=== PATIENT | female | born 1935 | race Caucasian/White ===

== ENCOUNTER 2020-07-03 06:05 | Day surgery (SDC) | payer MEDICARE, OTHER ==
[2020-07-02 14:21] LABS: BASOPHILS # (AUTO) 0.1 X10'3 (0-0.2); BASOPHILS % (AUTO) 0.8 % (0-1); EOSINOPHILS # (AUTO) 0.2 X10'3 (0-0.9); EOSINOPHILS % (AUTO) 3.4 % (0-6); HEMATOCRIT 38.9 % (35.0-45.0); HEMOGLOBIN 12.8 g/dl (12.0-16.0); LYMPHOCYTES % (AUTO) 31.1 % (21-51); MEAN CORPUSCULAR HEMOGLOBIN 29.1 PG (27.0-31.0); MEAN CORPUSCULAR VOLUME 88.4 FL (78-98); MEAN PLATELET VOLUME 8.9 FL (7.4-10.4); MONOCYTES # (AUTO) 0.4 X10'3 (0-0.9); MONOCYTES % (AUTO) 6.6 % (2-12); NEUTROPHILS # (AUTO) 3.8 X10'3 (1.8-7.7); NEUTROPHILS % (AUTO) 58.1 % (42-75); PLATELET COUNT 267 X10'3 (140-440); WHITE BLOOD COUNT 6.5 X10'3 (4.5-11.0)
[2020-07-02 14:27] LABS: ALBUMIN 3.6 G/DL (3.4-5.0); ANION GAP 10 (8-16); BLOOD UREA NITROGEN 18 MG/DL (7-18); BUN/CREATININE RATIO 19.8 (6.6-38.0); CALCIUM 8.9 MG/DL (8.5-10.1); CHLORIDE 108 MMOL/L (99-107); CREATININE 0.91 MG/DL (0.40-0.90); GLUCOSE 155 MG/DL (70-104); SODIUM 143 MMOL/L (135-145); TOTAL CARBON DIOXIDE 24.8 MMOL/L (24-32); eGFR 59 ML/MIN
[2020-07-02 14:30] LABS: PARTIAL THROMBOPLASTIN TIME 27 SECONDS (22-32)
[2020-07-03] VITALS (20 sets, daily range): BP systolic 125–240; BP diastolic 61–126
[~2020-07-03] VITALS: Ht 172.7 cm; Wt 100.0 kg
[~2020-07-03 06:05] MED LIST: ASPI-1265 PO; LABE200T28 PO; METF-436 PO; ROSU5TAB4 PO; SAXA5TAB PO; VALS1TAB81 PO
[2020-07-03] MEDS ORDERED: normal saline 1,000 ML IV SCH (06:20)
[2020-07-03] MEDS ORDERED: LORazepam 0.5 MG tablet PO PRN (06:20)
[2020-07-03] MEDS ORDERED: diphenhydrAMINE 25mg capsule PO PRN (06:20)
[2020-07-03] MEDS ORDERED: LIDOcaine/PRILOcaine 5gm cream TP ONE (06:20)
[2020-07-03] MEDS ORDERED: LOSA100T57 PO (06:25)
[2020-07-03] MEDS ORDERED: fentaNYL/PF 50MCG/1 ML 2ML syringe ONE (07:42)
[2020-07-03] MEDS ORDERED: verapamil 2.5 mg/ml inj IV ONE (07:42)
[2020-07-03] MEDS ORDERED: midazolam 2 mg/2 ml injection ONE (07:42)
[2020-07-03] MEDS ORDERED: iohexol 350MG/ML 100ml bottle IV ONE (07:43)
[2020-07-03] MEDS ORDERED: heparin 1,000unit/ml 10ml vial 10 ML ONE ×2 (07:43→09:40)
[2020-07-03] MEDS ORDERED: LIDOcaine 1% (10mg/ml)w/preservative injection 20ml MDV ONE ×3 (07:43→12:14)
[2020-07-03] MEDS ORDERED: iohexol 350 MG/ML 50ML vial IV ONE ×3 (07:43→09:15)
[2020-07-03] MEDS ORDERED: nitroGLYCERIN-Tridil 50MG/D5W 250 ML IV ONE (07:43)
[2020-07-03] MEDS ORDERED: heparin 1,000 UNITS/NS 500ml 500 ML ONE (07:43)
[2020-07-03] MEDS ORDERED: heparin 25,000 UNIT/250ml bag 250 ML IV ONE (09:03)
[2020-07-03 09:06] LABS: ISTAT HGB ART 11.2 g/dl (12.0-16.0); ISTAT Hct ART 33 %PCV (35-48); ISTAT O2 SATURATION ARTERIAL 95 % (95-98); ISTAT SOURCE ART
[2020-07-03] MEDS ORDERED: clopidogrel 300mg tablet ONE (09:40)
[2020-07-03] MEDS ORDERED: CLOPIDOGREL BISULFATE 300MG TAB PO ONE (10:55)
[2020-07-03] MEDS ORDERED: aspirin 81mg tab.chew PO ONE (10:55)
[2020-07-03] MEDS ORDERED: cyclobenzaprine 10mg tablet PO PRN (11:00)
[2020-07-03] MEDS ORDERED: acetaminophen 325mg tablet PO PRN ×2 (11:00)
[2020-07-03] MEDS ORDERED: proCHLORperazine 10 MG/2 ml inj IV PRN (11:00)
[2020-07-03] MEDS ORDERED: heparin 10,000 units/1 ML INJ IV PRN (11:00)
[2020-07-03] MEDS ORDERED: heparin 10,000 units/1 ML INJ IV ONE (11:00)
[2020-07-03] MEDS ORDERED: heparin 25,000 UNIT/250ml bag 250 ML IV SCH (11:00)
[2020-07-03] MEDS ORDERED: HYDROcodone/acetaminophen 10/325mg tab PO PRN ×2 (11:00)
[2020-07-03] MEDS ORDERED: magnesium hydroxide 30ml (MOM) UD suspension PO PRN (11:00)
[2020-07-03] MEDS ORDERED: OXAZEpam 15mg capsule PO PRN (11:00)
--- NOTE | 2020-07-03 12:00 | NUR ---
[employer], laboratory technology teacher called and will come to [facility] patient shortly.
--- NOTE | 2020-07-03 12:30 | NUR ---
Mark CONROY, cath lab nurse at bedside to [facility] to (R) groin.
[2020-07-03] MEDS ORDERED: docusate sod 100mg capsule PO SCH (20:00)
[2020-07-04] MEDS ORDERED: aspirin 81mg tab.chew PO SCH (08:00)
[2020-07-04] MEDS ORDERED: clopidogrel 75mg tablet PO SCH (08:00)
== END 2020-07-03 19:00 | disposition home or self-care (01) ==
LOC: SSTAY O 06:05
PROVIDERS: ATTEND Internal Medicine Cardiovascular Disease
DX: R06.02 Shortness of breath (principal); R53.83 Other fatigue; I25.10 Atherosclerotic heart disease of native coronary artery without angina pectoris; I25.82 Chronic total occlusion of coronary artery; E11.9 Type 2 diabetes mellitus without complications; I10 Essential (primary) hypertension; E78.5 Hyperlipidemia, unspecified; I65.23 Occlusion and stenosis of bilateral carotid arteries; I35.0 Nonrheumatic aortic (valve) stenosis; I25.2 Old myocardial infarction; E66.3 Overweight; Z68.33 Body mass index [BMI] 33.0-33.9, adult; Z98.890 Other specified postprocedural states; Z95.1 Presence of aortocoronary bypass graft; Z79.84 Long term (current) use of oral hypoglycemic drugs; Z79.82 Long term (current) use of aspirin; Z79.899 Other long term (current) drug therapy; Z82.49 Family history of ischemic heart disease and other diseases of the circulatory system; Z80.1 Family history of malignant neoplasm of trachea, bronchus and lung
CPT/HCPCS: 36415; 71045; 76937; 80048; 82803; 82948; 85014; 85025; 85347; 85610; 85730; 93005; 93461; 93880; 99152; 99153; C1725; C1751; C1760; C1769; C1874; C1894; C9600; J1644; J2001; J2250; J3010; J7030; J7040; Q0163; Q9967; A4620; A5120; A6258; A6449; J3490

== ENCOUNTER 2020-07-17 11:24 | Outpatient (CLI) | payer MEDICARE, OTHER ==
[~2020-07-17 11:24] MED LIST changes: -LABE200T28 PO; +LOSA100T57 PO; -SAXA5TAB PO; -VALS1TAB81 PO
[2020-07-17] MEDS ORDERED: iohexol 350MG/ML 100ml bottle IV ONE (12:34)
[2020-07-17] MEDS ORDERED: iohexol 350 MG/ML 50ML vial IV ONE (12:34)
== END 2020-07-17 23:59 | disposition home or self-care (01) ==
LOC: 64 CT 11:24
PROVIDERS: ATTEND Internal Medicine Cardiovascular Disease
DX: N31.9 Neuromuscular dysfunction of bladder, unspecified (principal); N32.0 Bladder-neck obstruction; I35.0 Nonrheumatic aortic (valve) stenosis; R16.0 Hepatomegaly, not elsewhere classified; J90 Pleural effusion, not elsewhere classified
CPT/HCPCS: 71275; 74174; 76937; 94010; 94727; 94729; Q9967

== ENCOUNTER → 2020-09-05 | Outpatient (CLI) | payer MEDICARE, OTHER ==
[~2020-09-05] VITALS: Ht 172.7 cm; Wt 100.3 kg
[~2020-09-05] MED LIST changes: +CLOP75TA15 PO
--- NOTE | 2020-09-05 15:34 | NUR ---
Ms. Colin was seen for 30 day f/up today. Echo and EKG sent from primary medication specialist. 5 meter walk test, KCCQ12 and vitals performed. Patient discussed improvement of symptoms. Patient will f.up again in about 1 year.
[2020-09-05 15:40] VITALS: BP 225/126
--- NOTE | 2020-09-05 15:41 | NUR ---
Rx called in for BP by Dr. Wallace
== END | disposition home or self-care (01) ==
LOC: TAVR 12:37
PROVIDERS: ATTEND Internal Medicine Cardiovascular Disease
DX: Z48.812 Encounter for surgical aftercare following surgery on the circulatory system (principal); Z95.2 Presence of prosthetic heart valve

== ENCOUNTER → 2021-08-21 | Outpatient (CLI) | payer MEDICARE, OTHER ==
[~2021-08-21] VITALS: Ht 165.1 cm; Wt 93.4 kg
[2021-08-21 15:30] VITALS: BP 203/81
[2021-08-21 15:32] VITALS: BP 195/92
--- NOTE | 2021-08-21 15:42 | NUR ---
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 Blackmon and Dr. Wallace. [facility] test completed. Vital signs measured. Echo and EKG reviewed with patient along with current condition of patients symptoms.
== END | disposition home or self-care (01) ==
LOC: CARD DIAG 13:38
PROVIDERS: ATTEND Internal Medicine Cardiovascular Disease
DX: I34.0 Nonrheumatic mitral (valve) insufficiency (principal); I44.7 Left bundle-branch block, unspecified; I45.10 Unspecified right bundle-branch block; Z95.2 Presence of prosthetic heart valve; Z48.812 Encounter for surgical aftercare following surgery on the circulatory system
CPT/HCPCS: 93005; 93306

== ENCOUNTER 2024-09-27 06:45 | Day surgery (SDC) | payer MEDICARE, OTHER ==
[2024-09-26 15:01] LABS: BASOPHILS % (AUTO) 0.6 % (0-1); EOSINOPHILS # (AUTO) 0.1 X10'3 (0-0.9); EOSINOPHILS % (AUTO) 1.7 % (0-6); HEMATOCRIT 34.6 % (35.0-45.0); HEMOGLOBIN 11.2 g/dl (12.0-16.0); LYMPHOCYTES % (AUTO) 16.5 % (21-51); MEAN CORPUSCULAR HEMOGLOBIN 27.8 PG (27.0-31.0); MEAN CORPUSCULAR HGB CONC 32.5 g/dL (33.0-36.5); MEAN CORPUSCULAR VOLUME 85.6 FL (78-98); MEAN PLATELET VOLUME 7.9 FL (7.4-10.4); MONOCYTES # (AUTO) 0.3 X10'3 (0-0.9); MONOCYTES % (AUTO) 5.5 % (2-12); NEUTROPHILS # (AUTO) 4.8 X10'3 (1.8-7.7); NEUTROPHILS % (AUTO) 75.7 % (42-75); PLATELET COUNT 329 X10'3 (140-440); RED BLOOD COUNT 4.04 X10'6 (4.20-5.60); RED CELL DISTRIBUTION WIDTH 16.3 % (11.5-14.5); WHITE BLOOD COUNT 6.3 X10'3 (4.5-11.0)
[2024-09-26 15:08] LABS: ALBUMIN 3.3 G/DL (3.4-5.0); ANION GAP 11 (8-16); BLOOD UREA NITROGEN 33 MG/DL (7-18); BUN/CREATININE RATIO 23.9 (10.0-20.0); CALCIUM 9.1 MG/DL (8.5-10.1); CHLORIDE 104 MMOL/L (99-107); CREATININE 1.38 MG/DL (0.40-0.90); GLUCOSE 213 MG/DL (70-104); POTASSIUM 3.6 MMOL/L (3.5-5.1); SODIUM 141 MMOL/L (135-145); TOTAL CARBON DIOXIDE 25.6 MMOL/L (24-32); eGFR 36 ML/MIN
[2024-09-26 15:11] LABS: INR 1.1 INR
[2024-09-26 15:12] LABS: PROTHROMBIN TIME 11.9 SECONDS (9.0-12.0)
[~2024-09-27] VITALS: Ht 170.2 cm; Wt 95.3 kg
[2024-09-27] VITALS (11 sets, daily range): BP systolic 111–141; BP diastolic 50–66; PULSE 64–82; RESP 12–15; TEMP 98.2; O2SAT 94–100
[~2024-09-27 06:45] MED LIST changes: -ASPI-1265 PO; +CEPH500C2 PO; -CLOP75TA15 PO; +EMPA25TA PO; +GLIP5TAB23 PO; -LOSA100T57 PO; +METO-539 PO; +OXYB5TAB21 PO; +POTA-207 PO
[2024-09-27] MEDS ORDERED: amiodarone 150mg/dext, iso-os 100 ML IV ONE ×2 (07:20→07:45)
[2024-09-27] MEDS ORDERED: LORazepam 0.5 MG tablet PO ONE ×2 (07:20→07:45)
[2024-09-27] MEDS ORDERED: atropine 0.1mg/ml 10ml syringe IV ONE ×2 (07:20→07:45)
[2024-09-27] MEDS ORDERED: diphenhydrAMINE 25mg capsule PO ONE ×2 (07:20→07:45)
[2024-09-27] MEDS ORDERED: AMI200T PO (07:25)
[2024-09-27] MEDS ORDERED: METO-384 PO (07:30)
[2024-09-27] MEDS ORDERED: FURO20TA4 PO (07:30)
[2024-09-27] MEDS ORDERED: ROSU10TA72 PO (07:30)
[2024-09-27] MEDS ORDERED: APIX5TAB3 PO (07:30)
[2024-09-27] MEDS ORDERED: APIX2.5T PO (07:34)
[2024-09-27] MEDS ORDERED: IRON PO (07:36)
[2024-09-27] MEDS ORDERED: normal saline 1000ml 1,000 ML IV SCH (07:45)
[2024-09-27] MEDS ORDERED: morphine 10mg/ml inj. IV ONE (07:45)
[2024-09-27] MEDS ORDERED: MIDAZolam 1mg/ml 10ml vial IV ONE (07:45)
[2024-09-27] MEDS: morphine 10mg/ml inj. IV ONE (10:06)
[2024-09-27] MEDS: MIDAZolam 1mg/ml 10ml vial IV ONE (10:06)
[2024-09-27] MEDS: normal saline 1000ml 1,000 ML IV SCH (10:06)
== END 2024-09-27 12:00 | disposition home or self-care (01) ==
LOC: SSTAY O 06:45
PROVIDERS: ATTEND Internal Medicine Cardiovascular Disease
DX: I48.0 Paroxysmal atrial fibrillation (principal); E11.22 Type 2 diabetes mellitus with diabetic chronic kidney disease; I12.9 Hypertensive chronic kidney disease with stage 1 through stage 4 chronic kidney disease, or unspecified chronic kidney disease; E78.5 Hyperlipidemia, unspecified; I25.2 Old myocardial infarction; I45.10 Unspecified right bundle-branch block; I25.10 Atherosclerotic heart disease of native coronary artery without angina pectoris; N18.9 Chronic kidney disease, unspecified; Z95.1 Presence of aortocoronary bypass graft; Z95.5 Presence of coronary angioplasty implant and graft; Z79.01 Long term (current) use of anticoagulants
CPT/HCPCS: 36415; 80048; 82948; 85025; 85610; 92960; 93005; J2250; J2270; J7030; J2274

== ENCOUNTER 2024-10-31 06:40 | Day surgery (SDC) | payer MEDICARE, OTHER ==
[2024-10-30 11:55] LABS: BASOPHILS % (AUTO) 0.6 % (0-1); EOSINOPHILS # (AUTO) 0.2 X10'3 (0-0.9); EOSINOPHILS % (AUTO) 3.3 % (0-6); HEMATOCRIT 34.8 % (35.0-45.0); HEMOGLOBIN 11.1 g/dl (12.0-16.0); LYMPHOCYTES # (AUTO) 0.9 X10'3 (1.1-4.8); LYMPHOCYTES % (AUTO) 14.6 % (21-51); MEAN CORPUSCULAR HEMOGLOBIN 25.7 PG (27.0-31.0); MEAN CORPUSCULAR HGB CONC 31.8 g/dL (33.0-36.5); MEAN CORPUSCULAR VOLUME 80.9 FL (78-98); MONOCYTES # (AUTO) 0.4 X10'3 (0-0.9); MONOCYTES % (AUTO) 6.2 % (2-12); NEUTROPHILS # (AUTO) 4.4 X10'3 (1.8-7.7); NEUTROPHILS % (AUTO) 75.3 % (42-75); PLATELET COUNT 301 X10'3 (140-440); RED CELL DISTRIBUTION WIDTH 16.7 % (11.5-14.5); WHITE BLOOD COUNT 5.9 X10'3 (4.5-11.0)
[2024-10-30 12:01] LABS: ALBUMIN 3.1 G/DL (3.4-5.0); ANION GAP 6 (8-16); BLOOD UREA NITROGEN 27 MG/DL (7-18); BUN/CREATININE RATIO 25.5 (10.0-20.0); CALCIUM 8.9 MG/DL (8.5-10.1); CHLORIDE 106 MMOL/L (99-107); CREATININE 1.06 MG/DL (0.40-0.90); GLUCOSE 190 MG/DL (70-104); POTASSIUM 3.8 MMOL/L (3.5-5.1); SODIUM 140 MMOL/L (135-145); TOTAL CARBON DIOXIDE 27.9 MMOL/L (24-32); eGFR 49 ML/MIN
[2024-10-30 12:04] LABS: INR 1.1 INR
[2024-10-30 12:09] LABS: PROTHROMBIN TIME 11.5 SECONDS (9.0-12.0)
[~2024-10-31] VITALS: Ht 170.2 cm; Wt 89.5 kg
[2024-10-31] VITALS (10 sets, daily range): BP systolic 126–154; BP diastolic 56–76; PULSE 62–76; RESP 10–16; TEMP 98; O2SAT 93–100
[~2024-10-31 06:40] MED LIST changes: +AMI200T PO; +APIX2.5T PO; -CEPH500C2 PO; +FURO20TA4 PO; +IRON PO; +METO-384 PO; -METO-539 PO; -OXYB5TAB21 PO; -POTA-207 PO; +ROSU10TA72 PO; -ROSU5TAB4 PO
[2024-10-31] MEDS: LORazepam 0.5 MG tablet PO ONE (07:10)
[2024-10-31] MEDS ORDERED: amiodarone 150mg/dext, iso-os 100 ML IV ONE (07:10)
[2024-10-31] MEDS: diphenhydrAMINE 25mg capsule PO ONE (07:10)
[2024-10-31] MEDS ORDERED: atropine 0.1mg/ml 10ml syringe IV ONE (07:10)
[2024-10-31] MEDS ORDERED: POTA-207 PO (07:18)
[2024-10-31] MEDS ORDERED: APIX5TAB3 PO ×2 (07:18→10:06)
[2024-10-31] MEDS ORDERED: OXYB5TAB21 PO (07:18)
[2024-10-31] MEDS ORDERED: METF-1203 PO (07:18)
[2024-10-31] MEDS: normal saline 1000ml 1,000 ML IV SCH (08:17)
[2024-10-31] MEDS: MIDAZolam 1mg/ml 10ml vial IV ONE (09:48)
[2024-10-31] MEDS: morphine 10mg/ml inj. IV ONE (09:48)
[2024-10-31] MEDS ORDERED: enoxaparin 30mg/0.3ml syringe SUBCUT ONE (10:05)
[2024-10-31] MEDS: enoxaparin 60mg/0.6ml syringe SUBCUT ONE (10:19)
[2024-10-31] MEDS: enoxaparin 30mg/0.3ml syringe SUBCUT ONE (10:19)
== END 2024-10-31 10:40 | disposition home or self-care (01) ==
LOC: SSTAY O 06:40
PROVIDERS: ATTEND Internal Medicine Cardiovascular Disease
DX: I48.0 Paroxysmal atrial fibrillation (principal); I49.3 Ventricular premature depolarization; I25.2 Old myocardial infarction; E11.9 Type 2 diabetes mellitus without complications; I10 Essential (primary) hypertension; E78.5 Hyperlipidemia, unspecified; Z95.1 Presence of aortocoronary bypass graft; I45.19 Other right bundle-branch block; I48.91 Unspecified atrial fibrillation; I25.10 Atherosclerotic heart disease of native coronary artery without angina pectoris; Z79.899 Other long term (current) drug therapy; Z98.890 Other specified postprocedural states; Z79.01 Long term (current) use of anticoagulants
CPT/HCPCS: 36415; 80048; 85025; 85610; 92960; 93005; J1650; J2250; J2270; J7030; J2274